=== PATIENT | male | born 1980 | race Caucasian/White ===

== ENCOUNTER 2019-07-10 22:35 | Emergency (ER) | payer OTHER ==
[~2019-07-10] VITALS: Wt 104.3 kg
[2019-07-10 22:54] VITALS: BP 135/81
[2019-07-10] MEDS ORDERED: LISINOPRIL-HCT1 EAC2 PO (22:59)
[2019-07-10] MEDS ORDERED: ATORVASTATIN CA80 MG PO (22:59)
[2019-07-10] MEDS ORDERED: SERTRALINE HCL25 MG PO (23:00)
[2019-07-10 23:32] LABS: ABSOLUTE BASOPHILS 0.1 thou/uL (0.0-0.2); ABSOLUTE EOSINOPHILS 0.1 thou/uL (0.0-0.7); ABSOLUTE MONOCYTES 0.9 thou/uL (0.0-1.2); ABSOLUTE NEUTROPHILS 8.9 thou/uL (1.6-8.1); BASOPHILS 0.9 %; EOSINOPHILS 0.8 %; HEMOGLOBIN 13.9 gm/dL (14.0-18.0); MCH 31.2 pg (26.0-34.0); MCHC 33.9 g/dL (28.0-37.0); MCV 91.9 fL (80.0-100.0); MONOCYTES 7.2 %; MPV 7.5 fl. (7.2-11.1); NUCLEATED RBCS 0 /100WBC; PLATELET COUNT* 367 thou/uL (150-400); POLYS 68.1 %; RBC 4.47 mil/uL (4.50-6.00); RDW-CV 13.4 % (10.5-14.5)
[2019-07-10 23:39] LABS: CALCIUM 9.3 mg/dL (8.5-10.1); POTASSIUM 3.5 mmol/L (3.5-5.1)
[2019-07-10 23:49] LABS: ALBUMIN 4.2 g/dL (3.4-5.0); TOTAL BILIRUBIN 0.6 mg/dL (<0.1-1.0); TOTAL PROTEIN 8.1 g/dL (6.4-8.2)
[2019-07-10 23:50] LABS: URINE BILIRUBIN NEGATIVE (Negative); URINE BLOOD TRACE (Negative); URINE CLARITY CLEAR; URINE COLOR YELLOW; URINE GLUCOSE-RANDOM NEGATIVE (Negative); URINE KETONES NEGATIVE (Negative); URINE LEUKOCYTES-REFLEX NEGATIVE (Negative); URINE NITRITE-REFLEX NEGATIVE (Negative); URINE PROTEIN NEGATIVE (Negative); URINE SPECIFIC GRAVITY 1.025 (1.005-1.030); URINE UROBILINOGEN 0.2 E.U./dl (0.2-1.0)
[2019-07-11 03:53] LABS: APTT 28.4 Seconds (25.0-31.3); PROTIME 10.3 Seconds (9.20-11.50)
[2019-07-11 04:09] VITALS: BP 109/72
[2019-07-11 06:55] VITALS: BP 111/54
[2019-07-11 10:14] VITALS: BP 111/54
[2019-07-11] MEDS ORDERED: PERCOCET 5-3251 EACH PO (10:14)
--- NOTE | 2019-07-12 08:39 | OP ---
[address] [address] OPERATIVE REPORT Name: CANDACE DOMINGO Room: [facility]#: [id number] Admission: 07/10/19 Attend Phys: Discharge: 07/11/19 Date of : 76 Report #: [id number] THIS REPORT FOR: //name// cc: [facility] physician unknown [facility] physician unknown ~ THIS REPORT FOR: //name// CC: Kellen Laird [facility] unknown DICTATED BY: Paulino Dominguez DO PREOPERATIVE DIAGNOSIS: Acute appendicitis. POSTOPERATIVE DIAGNOSIS: Acute appendicitis, incarcerated umbilical hernia PRIMARY SURGEON: Kellen Laird DO TEACHING SURGEON: Dez Darden DO, PGY-5 [employer]-SURGEON: Paulino Dominguez DO, PGY-3 OPERATION PERFORMED: Laparoscopic appendectomy and primary repair of umbilical hernia. ANESTHESIA: Combined general and local. ESTIMATED BLOOD LOSS: 30. SPECIMEN REMOVED: Appendix. COMPLICATIONS: None. INDICATIONS FOR PROCEDURE: The patient is a pleasant 38-year-old male who presented to the ED with chief complaint of increasing right lower quadrant abdominal pain, nausea, anorexia, p.o. intolerance. Pain was localized to right lower quadrant. The patient was found to have leukocytosis and left shift as well as CT findings of a dilated appendix with appendicolith at the base with periappendiceal fat stranding consistent with acute appendicitis. We recommended laparoscopic appendectomy. Full discussion of procedure, alternatives, risks and possible complications discussed include but not limited to bleeding, infection, postoperative pain, scarring, hernia, conversion to open procedure, staple line failure, staple leak, stump appendicitis, need for further surgery, and anesthesia risks. The patient voiced understanding of these risks and agreed to proceed with surgery. Findings were a dilated hyperemic indurated appendix. [address] [address] OPERATIVE REPORT Name: CANDACE DOMINGO Room: [facility] K[facility]STEL [place]#: [id number] Admission: 07/10/19 Attend Phys: Discharge: 07/11/19 Date of : 76 Report #: [id number] DESCRIPTION OF PROCEDURE: The patient was again seen and examined in preoperative holding. Fully informed written consent was obtained. IV Zosyn was given for antibiotics in the ED. No additional IV antibiotics for prophylaxis were indicated. The patient was subsequently transferred to the operating room suite and placed on the operating table in the supine position. At this time, Anesthesia induced general anesthesia via endotracheal intubation. This was successful. Left arm was tucked. Right arm was outstretched on an arm board. SCDs were placed to bilateral lower extremity calves. Grounding pad was placed to the right lateral thigh. All extremities and joints were padded and protected. Safety strap was placed across the patient's lap. Yaquelin Hugger warmer was placed across the patient's chest. A skyler was used to trim the patient's abdominal hair. He was then prepped and draped using standard sterile fashion. Time-out was performed prior to the onset of procedure. After time-out, a horizontal incision was made inferior to the umbilicus using open Garrido technique. We dissected down to the subcutaneous tissue, noting a fat containing umbilical hernia. Hernia sac was transected off of the umbilical stalk and hernia sac and contents were reduced back into the abdomen. Fascial edges were cleaned off. The fascial edges were grasped with bilateral Kochers. A relaxing incision on the fascial defect in the inferior portion was used to collect electrocautery to make room for a finger sweep to be performed. A finger sweep was performed, which also was used to escalante the peritoneum. Two 0 Vicryl stay sutures were placed on the fascial edges and a 12 mm Arlyn trocar was placed in the abdomen. Abdomen was insufflated first using low flow then high flow. Once the abdomen was fully insufflated, the patient was placed in Trendelenburg with a little bit of left sided down. At this time, a 5 mm 0-degree laparoscopic camera was placed in the abdomen, noting no injury to any underlying abdominal structures upon entry into the abdomen. Next there we placed an additional 5 mm trocar in the left lower quadrant and another 5 mm trocar in the suprapubic region. Using laparoscopic Gene and suction irrigation, the small bowel was gently mobilized towards the midline exposing the cecum and a very dilated and indurated appendix. Appendix tip was located and using laparoscopic Peak was traced back to the base. A window was made at the base of the appendix, the cecum using a [place] grasper. Once this was performed, an Endo-TALIA 45 mm purple load stapler was opened on the back field, placed through the umbilical trocar. The appendix was stapled across his base of the cecum. An additional purple load was then used to transect the mesoappendix. Intraoperative pictures were obtained. Hemostasis was achieved of the mesoappendix staple line using electrocautery. The appendix was placed into a 10 mm EndoCatch bag through the umbilical trocar. The right lower quadrant was copiously suctioned and irrigated using laparoscopic suction irrigation. Once the abdomen was fully irrigated, the patient was placed back supine. The small bowel and omentum was mobilized to cover our staple lines and the cecum. The abdomen was then desufflated under direct visualization. Once the abdomen was fully desufflated, 5 mm trocars were removed. There was noted to be no hemorrhage from the anterior abdominal wall. The camera was removed as was the [place] [address] OPERATIVE REPORT Name: CANDACE DOMINGO Room: [facility]#: [id number] Admission: 07/10/19 Attend Phys: Discharge: 07/11/19 Date of : 76 Report #: [id number] appendix was then removed through the umbilical incision site. Hernia defect was then closed with 3 interrupted [id number] 0 Vicryl sutures x 3. The umbilical stalk was then reimplanted to the fascia using interrupted 3-0 Vicryl. Layered closure was performed using a 3-0 interrupted Vicryl. The subcutaneous and dermal layers and the skin were closed using a running subcuticular 4-0 Monocryl. The additional 5 mm port sites were closed with a subcuticular interrupted 4-0 Monocryl. A 50 mL of 0.5% Marcaine were used in total for local anesthetic. The patient tolerated the procedure well and was extubated in the OR, transferred to PACU in stable condition after brief recovery from anesthesia. PLAN: To discharge to home. To follow up in the office with Dr. Laird in 1 week. OPERATIVE FINDINGS: Reducible fat-containing umbilical hernia and acute appendicitis with serositis, dilation, hyperemia and induration. Incidental finding of small right inguinal hernia. <ELECTRONICALLY SIGNED> By: Kellen Laird DO 07/12/19 0839 1021 1037Kellen Laird DO /nt
--- NOTE | 2019-07-12 16:07 | PATH ---
[address] [address] PATHOLOGY RPT PROCEDURE Name: CANDACE PAREKH [id number] Admission: 07/10/19 Date of : 76 Discharge: 07/11/19 Report #: [id number] Path Case #: [id number] [facility] Accession Number: [id number] . 01 Material submitted: . appendix - APPENDIX . 01 Clinical history: . Appendicitis . 02 Diagnosis: Appendix: - Acute appendicitis, periappendicitis and serositis. . (CATRINA:ana; 07/12/2019) [facility] 07/12/2019 1518 Local . 02 Electronically signed: . Waqas Garcia MD, Pathologist NPI- [id number] . 01 Gross description: . The specimen is received in formalin, labeled "Candace Parekh appendix". Received is a vermiform appendix measuring 6.6 cm in length by up to 1.0 cm in diameter with a moderate amount of attached mesoappendix. The specimen is predominantly fat wrapped with a slight amount of exposed pink-cabrera serosa. The surgical margin is closed with a line of clotilde. The clotilde are removed and the new margin is inked black. Sectioning reveals a patent to dilated lumen filled with blood coagulum admixed with possible fibrinopurulent exudate. The specimen is submitted representatively in cassettes A1 and A2, with the proximal margin and bisected tip submitted in cassette A1. (CAA; 07/11/2019) QAC/QAC 07/12/2019 1516 Local . 02 Pathologist provided ICD-10: K35.80 . 02 CPT . 204839 Specimen Comment: A courtesy copy of this report has been sent to [phone] Specimen Comment: Report sent to Performed at: [address] [id number] MD Mushtaq Quezada MD Phone: [phone] Performed at: 02 [place] [address] PATHOLOGY RPT PROCEDURE Name: CANDACE PAREKH Room: [facility]STEL [place]#: [id number] Admission: 07/10/19 Date of : 76 Discharge: 07/11/19 Report #: [id number] Path Case #: [id number] [address], [place] [id number] MD Waqas Garcia MD Phone: [phone]
--- NOTE | 2019-07-28 11:55 | EKG ---
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 [employer]: : 1980 Requested By: Autumn Bishop Order Number: [id number] MD: Jorge Luis Schmidt Measurements Intervals Trosper Rate: 69 P: 58 AL: 160 QRS: 46 QRSD: 96 T: 22 QT: 385 QTc: 413 Interpretive Statements Sinus rhythm Borderline low voltage, extremity leads No previous ECG available for comparison Electronically Signed On 07-11-2019 9:39:51 CDT by Jorge Luis Schmidt [email or web address] <ELECTRONICALLY SIGNED> By: Jorge Luis Schmidt MD, [facility] 07/11/19 0939 2 2 Jorge Luis Shcmidt MD, FACC /EPI
== END 2019-07-11 07:04 | disposition still patient (30) ==
LOC: M.ERS 22:35 → M.TBA-ER 07-11 00:55 → M.TBA 07-11 02:32 → M.ERS 07-11 02:32 → M.TBA 07-11 07:42 → M.TBA-ER 07-11 07:42
PROVIDERS: Emergency Medicine; Surgery
DX: K37 Unspecified appendicitis (principal); I10 Essential (primary) hypertension